=== PATIENT | male | born 1950 | race Caucasian/White ===

== ENCOUNTER 2017-06-14 05:25 | Inpatient (IN) | payer OTHER ==
[2017-06-01 13:27] LABS: URINE BILIRUBIN 2+ (Negative); URINE BLOOD 3+ (Negative); URINE COLOR YELLOW; URINE GLUCOSE-RANDOM* NEGATIVE (Negative); URINE KETONES TRACE (Negative); URINE LEUKOCYTES-REFLEX NEGATIVE (Negative); URINE PROTEIN (DIPSTICK) 2+ (Negative); URINE SPECIFIC GRAVITY >= 1.030 (1.003-1.035); URINE UROBILINOGEN 0.2 E.U./dl (0.2-1.0)
[2017-06-01 13:28] LABS: MCH 30.1 pg (26.0-34.0); MCV 88.7 fL (80.0-100.0); RBC 4.97 mil/uL (4.50-6.00); RDW 13.6 % (10.5-14.5); WBC 5.3 thou/uL (4.0-11.0)
[2017-06-01 13:31] LABS: CASTS None Seen /LPF (None Seen); CRYSTALS None Seen /LPF (None Seen); ICTOTEST (BILI CONFIRMATORY) Negative (Negative); SQUAMOUS None Seen /LPF (0-3); URINE RBC >20 Many /HPF (0-2)
[2017-06-01 13:33] LABS: URINE WBC-REFLEX None Seen /HPF (0-5)
[2017-06-01 13:38] LABS: ALBUMIN 3.6 g/dL (3.4-5.0); CREATININE 0.9 mg/dL (0.7-1.3); POTASSIUM 4.2 mmol/L (3.5-5.1)
[2017-06-14] VITALS (8 sets, daily range): BP systolic 109–127; BP diastolic 65–94
[~2017-06-14] VITALS: Ht 177.8 cm; Wt 122.5 kg
--- NOTE | ~2017-06-14 | O ---
[facility] [place] [address] OPERATIVE REPORT Name: OSMAR RIBERA Room #: 309-P [facility] IN M.R.#: [id number] Admission: 06/14/17 Attend Phys: Francis Mancilla MD Discharge: Date of : 50 Report #: [id number] THIS REPORT FOR: //name// CC: Francis BADILLO unknown DATE OF SERVICE: 06/14/2017 PREOPERATIVE DIAGNOSIS: End-stage degenerative arthritis, right knee. POSTOPERATIVE DIAGNOSIS: End-stage degenerative arthritis, right knee. PROCEDURE: Right total knee arthroplasty. SURGEON: Francis Mancilla MD INDICATIONS: This 66-year-old gentleman complains of rather severe bilateral knee pain. He also has generalized chronic pain syndrome and is on chronic narcotic medications. Both knees have rather severe crepitus and pain, the left knee looks more severe on x-ray, but the right knee is actually more uncomfortable. We discussed treatment options and the risks and benefits. He and his family understand well and wished to go ahead with right total knee arthroplasty. DESCRIPTION OF PROCEDURE: The patient was taken to the operating room where he was placed under general anesthesia. In addition, a femoral nerve block with indwelling catheter was placed. The right knee and leg were meticulously prepped and draped. Preoperative antibiotics were applied. A thigh tourniquet was applied and inflated to 300 mmHg. An anterior longitudinal skin incision was made and carried through subcutaneous tissues and along the medial peripatellar retinaculum. The patella was reflected laterally. Marked degenerative change in all 3 compartments was noted. The Pierce and Nephew knee system was utilized. Intramedullary guides were used on both the femur and the tibia. The femur seemed to be best suited for a size 6 femoral component, this was a lesion porous size 6 right femoral component. Appropriate cuts were created using the guide. The tibia was then exposed and the remnants of the medial and lateral meniscus were excised. The posterior cruciate ligament was retained. The cutting guide was applied and the proximal aspect of the tibia was resected placing this perpendicular to the long axis of the bone. The tibia seemed to be best suited for a size 5 Mandy right tibial component. The patellar surface was resected and a 35-mm patellar button seemed to fit most appropriately. Appropriate anchor holes were created. A trial reduction was performed and the 12-mm polyethylene insert fit nicely and resulted in satisfactory stability, alignment and range of motion. The trial components were removed. The surfaces were thoroughly irrigated. The intramedullary canal was blocked with a bone block on both the tibia and the femur. [address] [address] OPERATIVE REPORT Name: OSMAR RIBERA Room #: 309-P [facility] IN M.R.#: [id number] Admission: 06/14/17 Attend Phys: Francis Mancilla MD Discharge: Date of : 50 Report #: [id number] methacrylate cement was then mixed. This was injected into the porous surface of the proximal tibia. The Pierce and Nephew size 5 Mandy right tibial component was then impacted into place. It seated nicely and appeared to be secure. Excess cement was removed from around its margin. A trial tibial liner was inserted. The permanent right size 6 femur was then inserted using a cruciate retaining lesion porous femoral component, this was impacted on the distal femur and it seated nicely and appeared to be very secure. A 35-mm patellar button was cemented into place using appropriate anchor holes. It was secured with a patellar clamp as the cement begin to hardened. During this waiting period, the size 12 mm trial tibial component was tested once again, this resulted in good alignment and good range of motion with full knee extension and flexion beyond 135 degrees and satisfactory stability with varus and valgus stress. The trial tibial liner was removed and the permanent 12 mm lesion articular insert was then applied. This was snapped into place. The margins were carefully inspected and it was secured and stable. Again, gentle stress was applied and alignment, range of motion and stability appeared to be acceptable. At this point, the cement had hardened and the patellar clamp was removed. Range of motion was again assessed and the patella tracked nicely and appeared to be stable. At this point, a Hemovac drain was left laterally exiting through a separate stab incision. The tourniquet was then deflated after a total tourniquet time of approximately 58 minutes. Good hemostasis was established. The fascia was then closed with multiple #1 Vicryl sutures. The subcutaneous tissues were closed with 0 Monocryl. The skin was closed with skin kevin. A sterile dressing was applied. The patient was awakened and returned to recovery room in good condition. <ELECTRONICALLY SIGNED> By: Francis Mancilla MD 06/15/17 [id number] Francis Mancilla MD /nt
--- NOTE | ~2017-06-14 | D ---
[facility] [place] [address] DISCHARGE SUMMARY Name: OSMAR RIBERA Room #: 309-P [facility] IN ..#: [id number] Admission: 06/14/17 Attend Phys: Francis Mancilla MD Discharge: Date of : 50 Report #: [id number] THIS REPORT FOR: //name// CC: Francis BADILLO unknown DATE OF SERVICE: 06/17/2017 FINAL DIAGNOSES: 1. End-stage degenerative arthritis, right knee with right total knee arthroplasty. 2. Chronic pain syndrome. 3. Hypertension. OPERATIONS AND PROCEDURES: Right total knee arthroplasty. HISTORY OF PRESENT ILLNESS: This 66-year-old gentleman has problems with progressive right knee pain and deformity and also a history of significant generalized chronic pain syndrome requiring periodic chronic narcotic pain medication. He has tried conservative management for his knee symptoms, but without much success. He and his understand the treatment options and the potential risks and benefits well and have elected to go ahead with right total knee arthroplasty. HOSPITAL COURSE: The patient was admitted and taken to the operating room on 06/14. He underwent right total knee arthroplasty, which he tolerated quite well. Postoperatively, his course was largely unremarkable. The Hemovac was removed at that first postoperative day and his hemoglobin remained stable. He was able to resume a regular diet and advanced nicely without much difficulty. He was able to advance from IV analgesics to oral analgesics and tolerated these well. He was maintained on Lovenox injections as an initial anticoagulation regimen before resuming his usual preoperative regimen of Eliquis. He started on physical therapy and made good progress with independent ambulation and improving strength. He seems safe and ready for discharge home on 06/17/2017. DISCHARGE MEDICATIONS: Include Eliquis 2.5 mg b.i.d., Lipitor 40 mg q. day, Niaspan 1000 mg b.i.d., Flomax 0.4 mg daily, Diovan 80 mg daily, hydrocodone 10/325 one q.4 hours p.r.n. for pain, Proscar 5 mg daily, Lasix 40 mg b.i.d., vitamin C 1000 mg daily, vitamin B12 15 mcg daily. He will begin some outpatient therapy first at home and then moving to an outpatient therapy [address] [address] DISCHARGE SUMMARY Name: OSMAR RIBERA Room #: 309-P [facility] IN [facility].#: [id number] Admission: 06/14/17 Attend Phys: Francis Mancilla MD Discharge: Date of : 50 Report #: [id number] setting when strength and comfort will allow. I will plan to see him back in my office at about 2 weeks for followup and suture removal. <ELECTRONICALLY SIGNED> By: Francis Mancilla MD 06/17/17 [id number] Francis Mancilla MD /nt
[~2017-06-14 05:25] MED LIST: ASPIR 8181 MG PO; CELEBREX 200 M200 M1 PO; DETROL LA4 MG PO; DICLOFENAC SODI75 MG PO; DIOVAN 80 MG TA80 M1 PO; DIOVAN160 MG PO; ELIQUIS2.5 MG PO; ETODOLAC 400 M400 M1 PO; EXALGO12 MG PO; FISH OIL 1,001000 M2 PO; FLOMAX0.4 MG PO; LASIX 40 MG TAB40 M2 PO; LIPITOR40 MG PO; METHADONE HCL 110 M1 PO; MOVANTIK12.5 MG PO; NIASPAN ER 101000 M1 PO; NORCO 10-325 T1 EACH PO; PANTOPRAZOLE SO40 M1 PO; PROSCAR 5MG TABL5 MG PO; STOOL SOFTENER100 MG PO; VITAMIN B-125000 MC1 PO; VITAMIN C1000 MG PO
[2017-06-15] VITALS: BP 129/72
[2017-06-15 04:20] VITALS: BP 128/75
[2017-06-15 06:37] LABS: HEMATOCRIT 35.9 % (42.0-52.0); HEMOGLOBIN 12.5 gm/dL (14.0-18.0); MCH 31.2 pg (26.0-34.0); MCHC 34.8 g/dL (28.0-37.0); MCV 89.5 fL (80.0-100.0); RBC 4.02 mil/uL (4.50-6.00); RDW 14.1 % (10.5-14.5)
[2017-06-15 08:00] VITALS: BP 127/75
[2017-06-15 16:00] VITALS: BP 132/65
[2017-06-15 20:00] VITALS: BP 134/65
[2017-06-16 04:00] VITALS: BP 117/68
[2017-06-16 04:52] LABS: HEMATOCRIT 31.7 % (42.0-52.0); MCH 31.2 pg (26.0-34.0); MCHC 34.8 g/dL (28.0-37.0); MCV 89.9 fL (80.0-100.0); RBC 3.52 mil/uL (4.50-6.00); RDW 14.5 % (10.5-14.5); WBC 7.4 thou/uL (4.0-11.0)
[2017-06-16 07:54] VITALS: BP 128/86
[2017-06-16 15:06] VITALS: BP 123/67
[2017-06-16 19:12] VITALS: BP 116/67
[2017-06-17 03:56] VITALS: BP 115/74
[2017-06-17 05:12] LABS: HEMATOCRIT 31.1 % (42.0-52.0); HEMOGLOBIN 10.7 gm/dL (14.0-18.0); MCHC 34.3 g/dL (28.0-37.0); MCV 90.5 fL (80.0-100.0); RBC 3.44 mil/uL (4.50-6.00); RDW 14.3 % (10.5-14.5); WBC 6.6 thou/uL (4.0-11.0)
[2017-06-17 12:18] VITALS: BP 115/74
[2017-06-17 14:53] VITALS: BP 115/74
== END 2017-06-17 15:02 | disposition home health service (06) | DRG 470 ==
LOC: TBA 05:25 → 3N 05:25 → PRE 07:58 → 3N 11:22 → PRE 12:42 → 3N 06-17 15:02
PROVIDERS: Orthopaedic Surgery
PROC: 0SRC0J9 Replacement of Right Knee Joint with Synthetic Substitute, Cemented, Open Approach (ICD-10-PCS; principal; 2017-06-14)
DX: M17.11 Unilateral primary osteoarthritis, right knee (principal); G89.4 Chronic pain syndrome; I10 Essential (primary) hypertension; E78.5 Hyperlipidemia, unspecified; M41.9 Scoliosis, unspecified; Z96.643 Presence of artificial hip joint, bilateral; N40.0 Benign prostatic hyperplasia without lower urinary tract symptoms; I48.91 Unspecified atrial fibrillation; E78.1 Pure hyperglyceridemia; Z79.82 Long term (current) use of aspirin; Z79.899 Other long term (current) drug therapy; Z95.5 Presence of coronary angioplasty implant and graft; Z86.12 Personal history of poliomyelitis; Z87.442 Personal history of urinary calculi
CPT/HCPCS: 10795; 50010; 50101; 50415; 50954; 51130; 51225; 51412; 51771; 53000; 53364; 56525; 62110; 62900; 64039; 70005